=== PATIENT | female | born 1970 | race Caucasian/White ===

== ENCOUNTER 2019-03-25 08:35 | Outpatient (CLI) | payer OTHER | END 2019-03-25 08:40 | disposition home or self-care (01) | LOC: SONOGRAMA 08:35 → MAMO-SONO 08:45 | DX: N92.5 Other specified irregular menstruation (principal) ==

== ENCOUNTER 2019-07-06 05:48 | Day surgery (SDC) | payer OTHER ==
[~2019-07-06 05:48] MED LIST: BREO ELLIPTA 21 EACH IH; LOSARTAN-HCTZ1 EAC1 PO; SINGULAIR10 MG PO
[2019-07-06] MEDS ORDERED: TYLENOL325 MG PO (08:28)
== END 2019-07-06 13:35 | disposition home or self-care (01) ==
LOC: CIR.AMB 05:48 → ADM 08:00 → CIR.AMB 08:00
DX: N72 Inflammatory disease of cervix uteri (principal)